=== PATIENT | female | born 1955 | race Caucasian/White ===

== ENCOUNTER 2024-09-11 13:12 | Outpatient (CLI) | payer MEDICARE, SELFPAY ==
--- NOTE | 2024-09-11 13:15 | MM_ITS ---
WS: [id number] BILATERAL SCREENING DIGITAL TOMOSYNTHESIS MAMMOGRAM WITH CAD HISTORY: SCREEN COMPARISON: 12/11/2017 Bilateral CC and MLO views with tomosynthesis and synthetic mammography submitted. Computer aided det ection analyzed. Breast composition: There are scattered areas of fibroglandular density. No suspicious masses, microc alcifications or architectural distortion. MM/MM scr BI tomosynthesis [id number] IMPRESSION: BI-RADS: 2 - Benign. FOLLOW UP: 1 Year Follow-up
--- NOTE | 2024-09-11 13:15 | XR_ITS ---
WS: [id number] DEXA (DUAL ENERGY X-RAY ABSORPTIOMETRY) Bone mineral density was performed using a [employer] machine. HISTORY: POST MENOPAUSAL COMPARISON: 05/01/2019 Lumbar spine BMD (L1-L4): 0.872 g/cm2 T score: -2.6 Z score: -0.8 Total hip BMD: Left: 0.771 g/cm2. T score: -1.9 Z score: -0.4 Right: 0.770 g/cm2. T score: -1.9 Z score: -0.4 10 year probability of a major osteoporotic fracture is 25.5%. Compared to the prior study from 05/01/2019. Lumbar spine bone mineral density has increased by 2.0%. Bilateral hips bone mineral density has decreased by 1.8%. XR/XR DEXA axial skeleton* [id number] IMPRESSION: 1. OSTEOPOROSIS based upon the WHO classification for females. 2. Significant increase in bone mineral density within the lumbar spine since the prior study. No change of bone mineral density in the hips.
== END 2024-09-11 13:13 | disposition home or self-care (01) ==
LOC: RAD 13:14
PROVIDERS: Family Provider Family Medicine; PCP Family Medicine; Visit Provider Physician Assistant
DX: Z12.31 Encounter for screening mammogram for malignant neoplasm of breast (principal); R92.323 Mammographic fibroglandular density, bilateral breasts; Z13.820 Encounter for screening for osteoporosis; M81.0 Age-related osteoporosis without current pathological fracture; Z78.0 Asymptomatic menopausal state
CPT/HCPCS: 77063; 77067; 77080

== ENCOUNTER 2025-08-20 09:04 | Outpatient (CLI) | payer MEDICARE, SELFPAY ==
--- NOTE | 2025-08-20 09:13 | CTR_ITS ---
PROCEDURE INFORMATION: Exam: CT Neck With Contrast Exam date and time: 08/20/2025 10:15 AM Age: 70 years old Clinical indication: Mass, lump, or swelling in neck; Left; Lump on right side above clavicle/neck-bb x 1 year; Additional info: Mass of R side of neck/swelling TECHNIQUE: Imaging protocol: Computed tomography of the neck with contrast. Radiation optimization: All CT scans at this facility use at least one of these dose optimization techniques: automated exposure control; mA and/or kV adjustment per patient size (includes targeted exams where dose is matched to clinical indication); or iterative reconstruction. Contrast material: OMNI 350; Contrast volume: 100 ml; Contrast route: INTRAVENOUS (IV); COMPARISON: CR XR chest 2V* [id number] 08/10/2025 4:32 PM RADIATION DOSE METRICS: Total DLP (mGy-cm): 136.84 FINDINGS: Salivary glands: Normal. Glands are normal in size. Pharynx: Unremarkable. No significant tonsillar enlargement. Larynx: Unremarkable. Epiglottis is normal. Thyroid: Normal. No enlarged or calcified nodules. Trachea: Visualized trachea is unremarkable. Lungs: Unremarkable as visualized. Lymph nodes: Unremarkable. No lymphadenopathy. 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 The cervical spine demonstrates moderate degenerative changes at multiple levels. Soft tissues: No soft tissue lesion is seen. CT/CT neck w con* [id number] IMPRESSION: 1. No soft tissue mass is seen. 2. 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
[2025-08-20 10:12] LABS: Blood Urea Nitrogen 12 mg/dL (8-23)
[2025-08-20] MEDS: iohexol 350 mg/mL 500 mL Btl (per mL) IV (10:23)
== END 2025-08-20 09:05 | disposition home or self-care (01) ==
PROVIDERS: Family Provider Family Medicine; PCP Family Medicine; Visit Provider Family Medicine
DX: R22.1 Localized swelling, mass and lump, neck (principal); M89.8X8 Other specified disorders of bone, other site; M47.892 Other spondylosis, cervical region
CPT/HCPCS: 70491; 82565; 84520